=== PATIENT | female | born 1955 | race Caucasian/White ===

== ENCOUNTER → 2017-05-15 | Emergency (ER) | payer BC ==
[~2017-05-15] VITALS: Ht 175.3 cm; Wt 63.5 kg
--- NOTE | 2017-05-17 07:20 | EKG ---
[facility] [address] [facility] [place] [address] Signed Normal sinus rhythm Incomplete right bundle branch block Borderline ECG No previous ECGs available Confirmed by LIBIA SHEIKH MD ([id number]) on 05/17/2017 7:19:49 AM Electronically Signed By: LIBIA SHEIKH MD 05/17/17 0720 PATIENT NAME: TACHO NGUYEN DANIKA Electrocardiogram DATE OF : 57 PHYSICIAN: LIBIA SHEIKH MD REPORT #: [id number] REPORT IS CONFIDENTIAL AND NOT TO BE RELEASED WITHOUT AUTHORIZATION
== END ==
LOC: ED 01:53
DX: R00.2 Palpitations (principal)
CPT/HCPCS: 71046; 80053; 83735; 84484; 85025; 93005; 93010; 99284

== ENCOUNTER 2018-04-24 09:54 | Emergency (ER) | payer BC ==
[~2018-04-24] VITALS: Ht 175.3 cm; Wt 61.2 kg
--- OUTSIDE RECORDS SUMMARY | ~2018-04-24 | XMS | Clinical Summary ---
Demographics + + + | Address | [address] | | | [place] [address] | + + + | Home Phone | | + + + | Preferred Language | Unknown | + + + | Marital Status | | + + + | Latter-Day Affiliation | Unknown | + + + | Race | White | + + + | Ethnic Group | Not or | + + + Author + + + | Author | [facility] | + + + | Organization | [facility] | + + + | Address | Unknown | + + + | Phone | Unavailable | + + + Support + + +---------+ + | Name | Relationship | Address | Phone | + + +---------+ + | AGAPITO MCGRAW | ECON | Unknown | | + + +---------+ + Care Team Providers + +------+ + | Care Medical Clerical Assistant Name | Role | Phone | + +------+ + | Cheng Bruce MD | PP | | + +------+ + Source Comments FATIMAH is fully live on both [facility] and [facility] Allergies Not on File Current Medications Not on file Active Problems Not on file Social History + +-------+ +--------+------+ | Tobacco Use | Types | Packs/Day | Years | Date | | | | | Used | | + +-------+ +--------+------+ | Never Assessed | | | | | + +-------+ +--------+------+ + + + | Sex Assigned at | Date Recorded | | | | + + + | Not on file | | + + + Plan of Treatment +--------+---------+ + + + | Date | Type | Specialty | Care Team | Description | +--------+---------+ + + + | 07/06/ | Office | | Bob Marques MD | | | 2019 | Visit | | [address] | | | | | | [place], [place] | | | | | | [address] | | | | | | [phone] | | | | | | | | +--------+---------+ + + + + + + + + | Health Maintenance | Due Date | Last Done | Comments | + + + + + | Influenza (Flu) | | | | | vaccination (#1) | 8 | | | + + + + + Results Not on filefrom Last 3 Months Insurance + +--------+ +------+ + + | Payer | Benefi | Subscriber | Type | Phone | Address | | | t Plan | ID | | | | | | / | | | | | | | Group | | | | | + +--------+ +------+ + + | [employer] | REGENC | xxxxxxxxxxx | PPO | [phone] | [address] [address] [place] | | SHIELD | [employer] | [phone] | | [phone] | [place], [place] | | | | | | | [address] | + +--------+ +------+ + + + +--------+ +--------+ + + | Guarantor Name | Accoun | Relation to | Date | Phone | Billing Address | | | t Type | Patient | of | | | | | | | | | | + +--------+ +--------+ + + | SAIMA NGUYEN | Person | Self [birth year] Home: | [address] | | | al/Fam | | 1956 | [phone] | [place] [address] | | | martin | | | [phone] | | + +--------+ +--------+ + +"
--- OUTSIDE RECORDS SUMMARY | ~2018-04-24 | XMS | Clinical Summary ---
Demographics + + + | Address | [address] | | | [place] [address] | + + + | Home Phone | | + + + | Preferred Language | Unknown | + + + | Marital Status | | + + + | Jainism Affiliation | Unknown | + + + [...] Team Providers + +------+ + | Care [employer] Name | Role | Phone | + +------+ + | Cheng Bruce MD | PP | | + +------+ + Source Comments FATIMAH is fully live on both [facility] and [facility] InPatient.[facility] Allergies Not on File Current Medications Not [...] [address] | | | | | | [place], [place] | | | | | | [address] | | | | | | [phone] | | | | | | | [...] | PPO | [phone] | [address] [address] [place] | | SHIELD | [employer] | xx | | [phone] | [place], [place] | | | | | | | [phone] | + +--------+ +------+ + + + +--------+ +--------+ + + | Guarantor Name | Accoun | Relation to | Date | Phone | Billing Address | | | t Type | Patient | of | | | | | | | | | | + +--------+ +--------+ + + | SAIMA NGUYEN | Person | Self [birth year] | Home: | [address] | | | al/Fam | | 1956 | [phone] | [place] [address] | | | [place] | | | [phone] | | + +--------+ +--------+ + +"
[2018-04-24] MEDS ORDERED: METOPROLOL SUCC25 MG PO (10:07)
[2018-04-24] MEDS ORDERED: ONDANSETRON ODT8 MG PO (10:42)
--- NOTE | 2018-04-24 17:06 | EKG ---
[facility] [address] [facility] [place] [address] Signed Normal sinus rhythm Normal ECG When compared with ECG of 15-MAY-2017 02:04, Vent. rate has increased BY 31 BPM Incomplete right bundle branch block is no longer present Confirmed by CLAUDIO GUAN DO ([id number]) on 04/24/2018 5:05:45 PM Electronically Signed By: CLAUDIO GUAN DO 04/24/18 1706 PATIENT NAME: TACHO NGUYEN DANIKA Electrocardiogram DATE OF : 57 PHYSICIAN: CLAUDIO GUAN DO REPORT #: [id number] REPORT IS CONFIDENTIAL AND NOT TO BE RELEASED WITHOUT AUTHORIZATION
== END 2018-04-24 12:08 | disposition home or self-care (01) ==
LOC: ED 09:54
DX: K29.70 Gastritis, unspecified, without bleeding (principal); F41.9 Anxiety disorder, unspecified; Z88.8 Allergy status to other drugs, medicaments and biological substances; Z79.899 Other long term (current) drug therapy
CPT/HCPCS: 36415; 84484; 93005; 93010; 99285-25

== ENCOUNTER 2022-03-26 09:49 | Emergency (ER) | payer BC ==
[~2022-03-26] VITALS: Ht 175.3 cm; Wt 61.2 kg
[~2022-03-26 09:49] MED LIST: METOPROLOL SUCC25 MG PO; ONDANSETRON ODT8 MG PO
--- NOTE | 2022-03-28 21:58 | EKG ---
[facility] [address] [facility] [place] [address] Signed Normal sinus rhythm Normal ECG When compared with ECG of 24-APR-2018 10:01, No significant change was found Confirmed by Melinda Mirza MD () on 03/28/2022 9:57:52 PM Electronically Signed By: MELINDA MIRZA MD 03/28/22 2158 PATIENT NAME: TACHO NGUYEN DANIKA Electrocardiogram DATE OF : 57 PHYSICIAN: MELINDA MIRZA MD REPORT #: [id number] REPORT IS CONFIDENTIAL AND NOT TO BE RELEASED WITHOUT AUTHORIZATION
== END 2022-03-26 11:15 | disposition home or self-care (01) ==
LOC: ED 09:49
DX: R07.89 Other chest pain (principal); Z79.899 Other long term (current) drug therapy
CPT/HCPCS: 36415; 80053; 84484; 85025; 93005; 93010; 99285-25

== ENCOUNTER 2022-06-05 16:10 | Emergency (ER) | payer BC ==
[~2022-06-05] VITALS: Ht 175.3 cm; Wt 62.5 kg
[2022-06-05] MEDS ORDERED: ELIQUIS5 MG PO (19:01)
[2022-06-05] MEDS ORDERED: CARDIZEM CD120 MG PO (19:01)
[2022-06-05 19:22] VITALS: BP 126/96
--- NOTE | 2022-06-06 16:43 | EKG ---
[facility] [address] [facility] [place] [address] Signed Atrial flutter with variable AV block Rightward axis ST \T\ T wave abnormality, consider lateral ischemia Abnormal ECG When compared with ECG of 26-MAR-2022 09:53, Significant changes have occurred Confirmed by DAI CHO MD ([id number]) on 06/06/2022 4:43:12 PM Electronically Signed By: DAI CHO MD 06/06/22 1643 PATIENT NAME: TACHO NGUYEN DANIKA Electrocardiogram DATE OF : 57 PHYSICIAN: DAI CHO MD REPORT #: [id number] REPORT IS CONFIDENTIAL AND NOT TO BE RELEASED WITHOUT AUTHORIZATION
== END 2022-06-05 19:24 | disposition home or self-care (01) ==
LOC: ED 16:10
DX: I48.92 Unspecified atrial flutter (principal); I10 Essential (primary) hypertension; Z79.01 Long term (current) use of anticoagulants; Z79.899 Other long term (current) drug therapy
CPT/HCPCS: 36415; 71045; 80053; 83880; 84484; 85025; 93005; 93010